=== PATIENT | female | born 1975 | race Hispanic/Latino ===

== ENCOUNTER → 2016-10-01 | Outpatient (CLI) | payer OTHER ==
[~2016-10-01] MED LIST: AMOX500C2 PO; BLOOD PRESSURE MED; CEPH-507 PO; CEPH500C PO; CIPR-225 PO; CODE-54 PO; HYDR-3812 PO; IBP800T PO; LINA5TAB PO; LISI-594 PO; MED FOR DIABETES PO; METF-760 PO; METFORMIN; OMEP20TA7 PO; PANT40TA2 PO; POLY119P5 PO; SUCR1TAB36 PO
--- OUTSIDE RECORDS SUMMARY | 2016-10-01 05:58 | XMS REPORT | Continuity of Care Document ---
Author Author [facility] Organization [facility] Address Unknown Phone Unavailable Allergies Active Description Code Type Severity Reaction Onset Reported/Identified Relationship to Patient Clinical Status Yes No Known Drug Allergies [id number] Drug Allergy Unknown N/ A 05/04/2015 Medications Problems Date Dx Coded Attending Type Code Diagnosis Diagnosed By 07/19/2012 Ot 276.8 HYPOPOTASSEMIA 07/19/2012 Ot 401.9 HYPERTENSION NOS 07/19/2012 Ot 473.9 CHRONIC SINUSITIS NOS 07/19/2012 Ot 784.0 HEADACHE 06/16/2014 Ot 634.91 SPON ABORT UNCOMPL-INC 06/16/2014 Ot 789.09 ABDOMINAL PAIN, OTHER SPECIFIED SITE 05/04/2015 CARIE PRESCOTT Ot 599.0 URIN TRACT INFECTION NOS 05/04/2015 CARIE PRESCOTT Ot 623.8 NONINFLAM DIS VAGINA NEC 05/04/2015 CARIE PRESCOTT Ot 632 MISSED 09/03/2015 Ot K59.00 CONSTIPATION, UNSPECIFIED 09/03/2015 Ot N39.0 URINARY TRACT INFECTION, SITE NOT SPECIF 09/03/2015 Ot R10.84 GENERALIZED ABDOMINAL PAIN 09/03/2015 Ot R11.2 NAUSEA WITH VOMITING, UNSPECIFIED 09/06/2015 Ot 640.93 09/06/2015 Ot 625.9 09/06/2015 Ot 640.93 09/06/2015 Ot 625.9 09/10/2015 MADLKRYSTYNAA L JEWELRY SALES COORDINATOR Ot R10.13 01/27/2016 MADLKRYSTYNAA L JEWELRY SALES COORDINATOR Ot R10.13 EPIGASTRIC PAIN 09/25/2016 Ot 640.93 HEM EARLY PREG-ANTEPART 09/25/2016 Ot 625.9 FEM GENITAL SYMPTOMS NOS 09/25/2016 MADL, JOSE L JEWELRY SALES COORDINATOR Ot R10.13 EPIGASTRIC PAIN 09/25/2016 Ot 640.93 HEM EARLY PREG-ANTEPART 09/25/2016 Ot 625.9 FEM GENITAL SYMPTOMS NOS 09/25/2016 KRISTI JOSESylvester SOLANO Ot R10.13 EPIGASTRIC PAIN Procedures Results Encounters ACCT No. Visit Date/Time Discharge Status Pt. Type Provider Facility Loc./Unit Complaint [id number] 05/04/2015 13:16:00 2014 16:52:00 DIS Emergency CARIE PRESCOTT [facility] ER 8 WKS PREG/BLEEDING [id number] 10/06/2016 09:45:00 PEN Preadmit KARUNA MERCADO DO [facility] ENDO REFLUX [id number] 10/01/2016 05:55:00 ACT Outpatient KARUNA MERCADO DO [facility] PREOP REFLUX [id number] 09/06/2015 07:56:00 ACT Outpatient JOSE BERRY [facility] RAD EPIGASTRIC PAIN [id number] 09/03/2015 18:59:00 Document Registration [id number] 03/21/2015 13:18:00 Document Registration [id number] 06/16/2014 15:09:00 Document Registration [id number] 06/08/2014 14:38:00 Document Registration [id number] 07/18/2012 21:55:00 Document Registration
== END ==
LOC: PREOP 05:55
PROVIDERS: ATTEND Surgery
DX: Z01.818 Encounter for other preprocedural examination (principal); K21.9 Gastro-esophageal reflux disease without esophagitis

== ENCOUNTER 2016-10-06 08:39 | Day surgery (SDC) | payer OTHER ==
[~2016-10-06] VITALS: Ht 162.6 cm; Wt 72.6 kg
[~2016-10-06 08:39] MED LIST changes: -CEPH-507 PO; -HYDR-3812 PO; -LINA5TAB PO; -METF-760 PO; -PANT40TA2 PO; -SUCR1TAB36 PO
--- OUTSIDE RECORDS SUMMARY | 2016-10-06 08:42 | XMS REPORT | Continuity of Care Document ---
Author Author [facility] Organization [facility] Address Unknown Phone Unavailable Allergies Active Description Code Type Severity Reaction Onset Reported/Identified Relationship to Patient Clinical Status Yes No Known Drug Allergies [id number] Drug Allergy Unknown N/ A 05/04/2015 Medications [...] 640.93 09/06/2015 Ot 625.9 09/10/2015 MADLKRYSTYNAA L HEALTH COUNSELOR Ot R10.13 01/27/2016 MADLKRYSTYNAA L HEALTH COUNSELOR Ot R10.13 EPIGASTRIC PAIN 09/25/2016 Ot 640.93 HEM EARLY PREG-ANTEPART 09/25/2016 Ot 625.9 FEM GENITAL SYMPTOMS NOS 09/25/2016 MADL, JOSE L HEALTH COUNSELOR Ot R10.13 EPIGASTRIC PAIN 09/25/2016 Ot 640.93 HEM EARLY PREG-ANTEPART 09/25/2016 Ot 625.9 FEM GENITAL SYMPTOMS NOS 09/25/2016 JOSE BERRY HEALTH COUNSELOR Ot R10.13 EPIGASTRIC PAIN 10/02/2016 KARUNA MERCADO DO Ot K21.9 GASTRO-ESOPHAGEAL REFLUX DISEASE WITHOUT 10/02/2016 KARUNA MERCADO DO Ot Z01.818 ENCOUNTER FOR OTHER PREPROCEDURAL EXAMIN Procedures Results Encounters ACCT No. Visit Date/Time Discharge Status Pt. Type Provider Facility Loc./Unit Complaint [id number] 05/04/2015 13:16:00 2014 16:52:00 DIS Emergency CARIE PRESCOTT [facility] ER 8 WKS PREG/BLEEDING [id number] 10/06/2016 09:45:00 PEN Preadmit KARUNA MERCADO DO [facility] ENDO REFLUX [id number] 10/01/2016 05:55:00 ACT Outpatient KARUNA MERCADO DO [facility] PREOP REFLUX [id number] 09/06/2015 07:56:00 ACT Outpatient JOSE BERRY [facility] RAD EPIGASTRIC PAIN [id number] 09/03/2015 18:59:00 Document Registration [id number] 03/21/2015 13:18:00 Document Registration [id number] 06/16/2014 15:09:00 Document Registration [id number] 06/08/2014 14:38:00 Document Registration [id number] 07/18/2012 21:55:00 Document Registration
[2016-10-06] MEDS ORDERED: NS IV 1000 ML 1,000 ML IV STA (08:50)
[2016-10-06] MEDS ORDERED: HURRICAINE EXT TUBE (BENZOCAINE) XX PRN (09:00)
[2016-10-06] MEDS ORDERED: MIDAZOLAM 2 MG/2 ML (VERSED) VIAL ONE (09:01)
[2016-10-06] MEDS ORDERED: proPOfol 200 MG/20 ML (DIPRIVAN) VIAL IV ONE (09:01)
--- NOTE | 2016-10-06 09:02 | Progress Note-Pre Operative ---
Pre-Operative Progress Note H&P Reviewed The H&P was reviewed, patient examined and no changes noted. Date H&P Reviewed: Oct 06, 2016 Time H&P Reviewed: 09:02 Pre-Operative Diagnosis: GERD KARUNA MERCADO DO Oct 06, 2016 9:02 am
[2016-10-06 09:17] VITALS: BP 173/90
[2016-10-06] MEDS ORDERED: PANT40TA2 PO (09:23)
[2016-10-06] MEDS ORDERED: SUCR1TAB36 PO (09:23)
--- NOTE | 2016-10-06 09:24 | Discharge Inst-Simple/Standard ---
Discharge Inst-Standard Discharge Medications New, Converted or Re-Newed RX: RX on Chart Patient Instructions/Follow Up Plan of Care/Instructions/FU: Follow up with Dr. Shaw in 3 weeks. Take medication as directed Activity as Tolerated: Yes Discharge Diet: No Restrictions FRANCHESKA VILLAFANA APRN Oct 06, 2016 09:24
--- NOTE | 2016-10-06 09:25 | Progress Note-Post Operative ---
Post-Operative Progess Note Pre-Operative Diagnosis GERD Post-Operative Diagnosis antral ulcers, small hiatal hernia Post-Op Procedure Note Date of Procedure: Oct 06, 2016 Name of Procedure: EGD with biopsy Procedure Note/Findings see note Anesthesia Type per nurses' aide Estimated blood loss (mL): none Specimen(s) collected antrum KARUNA MERCADO DO Oct 06, 2016 9:25 am
[2016-10-06 09:50] VITALS: BP 143/93
[2016-10-06 10:20] VITALS: BP 152/90
[2016-10-06 10:45] VITALS: BP 152/90
--- NOTE | 2016-10-07 13:02 | OPERATIVE REPORT ---
PROCEDURE PHYSICIAN: KARUNA MERCADO DATE OF PROCEDURE: 10/06/2016 PREOPERATIVE DIAGNOSIS: GERD. POSTOPERATIVE DIAGNOSES: Small antral erosions, small hiatal hernia. PROCEDURE: EGD with biopsies. SURGEON: Colin. ANESTHESIA: Per POLISHING PAD MOUNTER. ESTIMATED BLOOD LOSS: None. COMPLICATIONS: None. INDICATIONS: The patient is a 40-year-old female who is having reflux symptoms. She understands the risks and benefits of the procedure and wishes to proceed with procedure. Consent was signed on the chart. PROCEDURE: The patient was taken to the endoscopy suite, placed in left lateral recumbent position. Timeout was performed. The scope was inserted in the mouth, down the esophagus and into the stomach noting some antral erosions. The scope was continued to be inserted into the duodenum without difficulty. There were no polyps, masses or ulcerations in the duodenum. The scope was then slowly retracted back into the stomach where it was further insufflated noting the antral erosions. Biopsy of the antrum was obtained. The scope was retroflexed noting a small hiatal hernia. No other pathology noted. The scope was returned to its normal position slowly withdrawn back into the esophagus. She has no polyps, masses, ulcerations or erythema in the distal esophagus. The scope was then slowly retracted back noting no other pathology. The scope was retracted until completely removed. The patient tolerated the procedure well without any complications. She was taken to recovery room in stable condition. RECOMMENDATIONS: The patient will be switched from Prilosec to Protonix 40 mg daily. She will also be placed on Carafate 1 gram 4 times a day. She will have follow-up in the office in approximately 3 weeks. Further recommendations pending pathology results and see how her symptoms are doing at that time. Job ID: [id number] Dictated Date: 10/06/2016 09:28:04 Installation Tech Date: 10/07/2016 12:57:16 / constantino
[2016-11-26] MEDS ORDERED: HYDR-3812 PO (12:05)
[2016-11-26] MEDS ORDERED: CEPH-507 PO (14:01)
== END 2016-10-06 10:45 | disposition home or self-care (01) ==
LOC: ENDO 08:39
PROVIDERS: ATTEND Surgery
DX: K21.9 Gastro-esophageal reflux disease without esophagitis (principal); K44.9 Diaphragmatic hernia without obstruction or gangrene; K25.9 Gastric ulcer, unspecified as acute or chronic, without hemorrhage or perforation
CPT/HCPCS: 82962; 88305

== ENCOUNTER → 2016-10-30 | Outpatient (CLI) | payer OTHER ==
[~2016-10-30] MED LIST changes: +CEPH-507 PO; +HYDR-3812 PO; +LINA5TAB PO; +METF-760 PO; +PANT40TA2 PO; +SUCR1TAB36 PO
--- OUTSIDE RECORDS SUMMARY | 2016-10-30 06:48 | XMS REPORT | Continuity of Care Document ---
Author Author [facility] Organization [facility] Address Unknown Phone Unavailable Care Team Providers Care Reproductive Surgeon Name Role Phone GIANNI SHORE DO PCP Insurance Providers Payer Name Policy Number Subscriber Name Relationship Self Pay Pending [facility] Apprv [id number] Remea Villanueva 18 Self / Same As Patient Advance Directives Directive Response Recorded Date/Time Advance Directives No 10/06/16 9:09am Health Care Power of Ceramic Capacitor Processor No 10/06/16 9:09am Organ Donor No 10/06/16 9:09am Resuscitation Status Full Code 10/06/16 9:09am Problems Active Problems Medical Problem Onset Date Status Constipation Unknown Acute Generalized abdominal pain Unknown Acute Incomplete Unknown Acute Missed Unknown Acute Nausea and vomiting Unknown Acute Urinary tract infection Unknown Acute Urinary tract infection Unknown Acute Medications Current Home Medications Medication Dose Units Route Directions Days/Qty Instructions Start Date [Metformin] 06/16/14 [Blood Pressure Med] 06/16/14 Acetaminophen/Codeine 1 Tab 1 Tab Oral Every 4HRS for Pain 10 06/16/14 [Metformin] 05/04/15 Cephalexin 500 Mg 500 Mg Oral Three Times A Day 21 05/04/15 Polyethylene Glycol 3350 119 Gm 17 Gm Oral Twice A Day 1 Dissolve one capful in 8 ounces of water or juice 09/03/15 Ciprofloxacin Hcl 500 Mg 500 Mg Oral Twice A Day 14 09/03/15 Sucralfate 1 Gm 1 Gm Oral Four Times Daily 120 10/06/16 Pantoprazole Sodium 40 Mg 40 Mg Oral Daily 60 10/06/16 Past Home Medications Medication Directions Ordered Status [Med For Diabetes] , 0 Oral Daily 07/18/12 Discontinued Amoxicillin 500 Mg Capsule, 2 Each Oral Three Times A Day 07/19/12 Discontinued Ibuprofen 800 Mg Tab, 800 Mg Oral Give Every 8 Hrs On Schedule as needed 18/08 Discontinued Lisinopril 5 Mg Tablet, 5 Mg Oral Daily 07/19/12 Discontinued Omeprazole 20 Mg Tablet.dr, 20 Mg Oral Daily 09/03/15 Discontinued Social History Social History Problem Response Recorded Date/Time Alcohol Use Denies Use 05/04/2015 1:40pm Recreational Drug Use No 05/04/2015 1:40pm Recent Foreign Travel No 10/06/2016 9:15am Recent Infectious Disease Exposure No 10/06/2016 9:15am Sexually Transmitted Disease No 10/06/2016 9:09am HIV/AIDS No 10/06/2016 9:09am Smoking Status Never a Smoker 10/06/2016 9:09am Recent Hopitalizations No 10/06/2016 9:09am Sexually Transmitted Disease No 10/06/2016 9:09am Query Response Start Date Stop Date Smoking Status Never a Smoker Hospital Discharge Instructions Patient Instructions Physician Instructions New, Converted or Re-Newed RX: RX on Chart Plan of Care/Instructions/FU: Follow up with Dr. Mercado in 3 weeks. Take medication as directed Activity as Tolerated: Yes Discharge Diet: No Restrictions Care Plan Patient Instructions:: Follow up with Dr. Mercado in 3 weeks.Take medication as directed Plan of Care Discharge Date 10/06/16 10:45am Instructions/Education Provided EGD-ESOPHAGOGASTRODUODENOSCOPY Prescriptions See Medication Section Functional Status No functional status results. Allergies, Adverse Reactions, Alerts No known allergies. Immunizations No immunization records. Vital Signs Acute Vital Signs Vital Response Date/Time Temperature (Fahrenheit) 97.6 degrees F (97.6 - 99.5) 10/06/2016 10:45am Temperature (Calculated Celsius) 36.61157 degrees C (36.4 - 37.5) 10/06/2016 10:45am Temperature Source Tympanic 10/06/2016 10:45am Pulse Rate (adult) 81 bpm (60 - 90) 10/06/2016 10:45am Respiratory Rate 18 bpm (12 - 24) 10/06/2016 10:45am O2 Sat by Pulse Oximetry 98 % (88 - 100) 10/06/2016 10:45am Blood Pressure 152/90 mm Hg 10/06/2016 10:45am Blood Pressure Mean 117 mm Hg 10/06/2016 9:17am Pain Numeric Pain Scale 0-No Pain 10/06/2016 10:45am Pain Intensity 0 10/06/2016 10:20am Height (Feet) 5 feet 10/06/2016 9:17am Height (Inches) 4.00 inches 10/06/2016 9:17am Height (Calculated Centimeters) 162.458563 cm 10/06/2016 9:17am Weight (Pounds) 160 pounds 10/06/2016 9:17am Weight (Ounces) 0.0 oz 10/06/2016 9:17am Weight (Calculated Grams) 52037.78 gm 10/06/2016 9:17am Weight (Calculated Kilograms) 72.611105 kilograms 10/06/2016 9:17am Calculated BMI 27.5 10/06/2016 9:17am Results Laboratory Results Test Name Result Units Flags Reference Collection Date/Time Result Date/ Time Comments Glucometer 131 MG/DL H 70-110 10/06/2016 8:58am 10/06/2016 9:13am Procedures Procedure Status Date Provider(s) Esophagogastroduodenoscopy (EGD) with dilation Completed 10/06/16 KARUNA MERCADO DO Anesthesia for 30 minutes Active 10/06/16 KARUNA MERCADO DO Encounters Encounter Location Arrival/Admit Date Discharge/Depart Date Attending Provider Departed [facility] 10/06/16 8:39am 10:45am KARUNA MERCADO DO Registered Clinic [facility] 10/01/16 5:55am KARUNA MERCADO DO
--- NOTE | 2016-10-30 08:01 | Diagnostic Imaging Report ---
PROCEDURE: US Gallbladder. TECHNIQUE: Multiple real-time grayscale images were obtained over the right upper quadrant in various projections. INDICATION: Abdominal pain. Liver parenchyma is homogeneous with normal echotexture. The gallbladder is clear with no stones or wall thickening. The common duct is nondilated. Pancreas is obscured by bowel gas. Right kidney is normal. There is no ascites. IMPRESSION: Negative gallbladder sonogram. Dictated by: Dictated on workstation # [id number]
== END ==
LOC: RAD 06:44
PROVIDERS: ATTEND Nurse Practitioner
DX: R10.13 Epigastric pain (principal)
CPT/HCPCS: 76705

== ENCOUNTER → 2016-11-13 | Outpatient (CLI) | payer OTHER ==
[~2016-11-13] MED LIST changes: +CATHETER FLUSH 10 ML SYR IV PRN
--- NOTE | 2016-11-13 15:28 | Diagnostic Imaging Report ---
INDICATION: Epigastric pain. After intravenous administration of 5.0 mCi technetium 99m Choletec, scintigraphic images of the upper abdomen are obtained. Initial images reveal normal distribution of activity throughout the liver. There is prompt appearance of activity in the biliary tree and gallbladder. Activity passes freely into the small bowel. Patient then ingested Ensure Plus without significant contraction of the gallbladder documented. IMPRESSION: No scintigraphic evidence of acute cholecystitis or biliary obstruction. There is no significant response to ingesting Ensure. This may be related to gallbladder dyskinesia. Chronic cholecystitis could have this appearance. Dictated by: Dictated on workstation # [id number]
== END ==
LOC: CARD 11:44
PROVIDERS: ATTEND Nurse Practitioner
DX: R10.13 Epigastric pain (principal)
CPT/HCPCS: 78227

== ENCOUNTER 2016-11-19 11:56 | Outpatient (CLI) | payer OTHER ==
[~2016-11-19] VITALS: Ht 157.5 cm; Wt 73.1 kg
[~2016-11-19 11:56] MED LIST changes: -CATHETER FLUSH 10 ML SYR IV PRN; -CEPH-507 PO; -HYDR-3812 PO; -LINA5TAB PO; -METF-760 PO
[2016-11-19 12:06] VITALS: BP 161/100
[2016-11-19 13:03] LABS: BASOPHILS % (AUTO) 0 % (0-10); EOSINOPHILS % (AUTO) 0 % (0-10); LYMPHOCYTES # (AUTO) 2.2 X 10^3 (1.0-4.0); LYMPHOCYTES % (AUTO) 18 % (12-44); MEAN CORPUSCULAR HEMOGLOBIN 31 PG (25-34); MEAN CORPUSCULAR HGB CONC 36 G/DL (32-36); MEAN CORPUSCULAR VOLUME 87 FL (80-99); MEAN PLATELET VOLUME 11.7 FL (7.4-10.4); MONOCYTES # (AUTO) 0.6 X 10^3 (0.0-1.0); MONOCYTES % (AUTO) 5 % (0-12); NEUTROPHILS # (AUTO) 9.3 X 10^3 (1.8-7.8); NEUTROPHILS % (AUTO) 76 % (42-75); PLATELET COUNT 234 10^3/uL (130-400); RED BLOOD COUNT 4.26 10^6/uL (4.35-5.85); RED CELL DISTRIBUTION WIDTH 12.2 % (10.0-14.5); WHITE BLOOD COUNT 12.2 10^3/uL (4.3-11.0)
[2016-11-19] MEDS ORDERED: METF-760 PO (14:33)
[2016-11-19] MEDS ORDERED: LINA5TAB PO (14:33)
[2016-11-26] MEDS ORDERED: HYDR-3812 PO (12:05)
[2016-11-26] MEDS ORDERED: CEPH-507 PO (14:01)
== END 2016-11-19 12:20 | disposition home or self-care (01) ==
LOC: PREOP 11:56
PROVIDERS: ATTEND Surgery
DX: Z01.812 Encounter for preprocedural laboratory examination (principal); Z11.2 Encounter for screening for other bacterial diseases; K82.8 Other specified diseases of gallbladder
CPT/HCPCS: 36415; 85025; 87081

== ENCOUNTER 2016-11-26 10:21 | Day surgery (SDC) | payer OTHER ==
[~2016-11-26] VITALS: Ht 157.5 cm; Wt 73.1 kg
[~2016-11-26 10:21] MED LIST changes: +LINA5TAB PO; +METF-760 PO
[2016-11-26] MEDS ORDERED: ceFAZolin 1,000 MG (ANCEF) VIAL ONE (10:37)
[2016-11-26] MEDS ORDERED: NS (IVPB) 50 ML ONE (10:38)
[2016-11-26 10:45] VITALS: BP 161/87
[2016-11-26] MEDS ORDERED: proPOfol 200 MG/20 ML (DIPRIVAN) VIAL IV ONE (10:54)
[2016-11-26] MEDS ORDERED: LIDOCAINE 1% INJ 20 ML (XYLOCAINE) VIAL ONE (10:54)
[2016-11-26] MEDS ORDERED: BUPIVACAINE 0.5% 30 ML (SENSORCAINE) VIAL ONE (10:54)
[2016-11-26] MEDS ORDERED: fentaNYL INJECTION 250 MCG/5 ML AMP ONE (10:54)
[2016-11-26] MEDS ORDERED: MIDAZOLAM 2 MG/2 ML (VERSED) VIAL ONE (10:54)
[2016-11-26] MEDS ORDERED: ROCURONIUM 50 MG/5 ML (ZEMURON) VIAL IV ONE (10:54)
[2016-11-26] MEDS: LACTATED RINGERS 1,000 ML IV SCH ×2 (10:55→12:09)
[2016-11-26] MEDS ORDERED: ceFAZolin 1 GM/NS 50 ML IVPB IV ONE ×2 (11:00)
[2016-11-26] MEDS ORDERED: LACTATED RINGERS 1,000 ML IV ONE ×2 (11:01→12:15)
[2016-11-26] MEDS ORDERED: SEVOFLURANE (ULTANE) 15 ML INHAL SOLN ONE (12:04)
--- NOTE | 2016-11-26 12:04 | Progress Note-Post Operative ---
Post-Operative Progess Note Surgeon (s)/Motor Winder (s) Surgeon KARUNA MERCADO DO Motor Winder: Dr. Hickman Pre-Operative Diagnosis biliary dyskinesia Post-Operative Diagnosis Same Post-Op Procedure Note Date of Procedure: Nov 26, 2016 Name of Procedure Performed: Laparoscopic cholecystectomy Description of the Procedure: see note Findings of the Procedure see note Anesthesia Type general Estimated blood loss (mL): minimal Specimen(s) collected/removed gallbladder KARUNA MERCADO DO Nov 26, 2016 12:03 pm
[2016-11-26] MEDS ORDERED: HYDR-3812 PO (12:05)
--- NOTE | 2016-11-26 12:09 | Discharge Inst-Simple/Standard ---
Discharge Inst-Standard Discharge Medications New, Converted or Re-Newed RX: RX on Chart Patient Instructions/Follow Up Plan of Care/Instructions/FU: 2 weeks Colin [address] Mancini Activity as Tolerated: No Discharge Diet: Regular Diet Other Inst to Patient Follow up Appt: Make appointment for [address] Shaw. Make appointment for [address] Mancini Instructions: No lifting greater than 10 pounds. No strenuous activity. May shower in 24 hours, no tub bath or soaking. Use incentive spirometer at home as directed. No Smoking Skin/Wound Care: May remove bandages in 24 hours. You need to leave the white strips over incision on they will fall off on their own. Symptoms to Report: Appetite Changes, Extremity Discoloration, Numbness/Tingling, Swelling Increased , Bleeding Excessive, Eyesight Changes, Pain Increased, Urine Color Change, Constipation(Persistent), Fever over 101 degree F, Pain/Pressure in chest, Urinating Difficulty, Cough Up/Vomit Blood, Heart Beat Irreg/Pounding, Pain/ Pressure in jaw, Vaginal Bleeding Increase, Cramps in feet or legs, Lightheadedness, Pain/Pressure in shoulder, Diarrhea(Persistent), Memory Changes Suddenly, Questions/Concerns, Weight gain consecutive days, Dizziness/ Fainting, Nausea/Vomiting, Shortness of Breath, Weight gain over 2 pounds. If eyes or skin turn yellow notify physician. If questions or concerns contact your physician Or seek help at emergency department. KARUNA SHAW DO Nov 26, 2016 12:09 pm
[2016-11-26] MEDS ORDERED: GLYCOPYRROLATE 0.2 MG/ML (ROBINUL) 2 ML VIAL ONE (12:15)
[2016-11-26] MEDS ORDERED: HYDROcodone/APAP 5 MG/325 MG (LORTAB) TAB PO PRN (12:15)
[2016-11-26] MEDS ORDERED: NEOSTIGMINE (BLOXIVERZ ) 1 MG/1ML 10 ML VIAL ONE (12:15)
[2016-11-26] MEDS ORDERED: morphine INJ 10 MG/ML 1ML (SYR OR VIAL) ONE (12:32)
[2016-11-26] MEDS: morphine INJ 10 MG/ML 1ML (SYR OR VIAL) IV PRN ×2 (12:39→12:44)
[2016-11-26] MEDS: LABETALOL HCL 20 MG/4 ML VIAL IV PRN ×3 (12:45→13:02)
[2016-11-26 13:20] VITALS: BP 175/52
[2016-11-26 13:31] LABS: BILIRUBIN,URINE NEGATIVE (NEGATIVE); KETONES,URINE 1+ (NEGATIVE); LEUKOCYTE ESTERASE ,URINE 3+ (NEGATIVE); NITRITE,URINE NEGATIVE (NEGATIVE); PH,URINE 6 (5-9); PROTEIN,URINE 2+ (NEGATIVE); UROBILINOGEN,URINE NORMAL (NORMAL)
[2016-11-26 13:41] LABS: SQUAMOUS EPITHELIAL CELL,UR 0-2 /HPF; WBC,URINE TNTC /HPF
[2016-11-26 13:50] VITALS: BP 177/93
[2016-11-26] MEDS ORDERED: CEPH-507 PO (14:01)
[2016-11-26 14:20] VITALS: BP 165/96
[2016-11-26 15:50] VITALS: BP 165/96
--- NOTE | 2016-11-27 11:27 | OPERATIVE REPORT ---
PROCEDURE PHYSICIAN: KARUNA MERCADO DATE OF PROCEDURE: 11/26/2016 PREOPERATIVE DIAGNOSIS: Biliary dyskinesia. POSTOPERATIVE DIAGNOSIS: Biliary dyskinesia. PROCEDURE: Laparoscopic cholecystectomy. SURGEON: Colin. MEDICAL SURGICAL TECH: Dr. Hickman, who assisted in retraction, dissection, and closure. ANESTHESIA: General. ESTIMATED BLOOD LOSS: Minimal. COMPLICATIONS: Positive test. INDICATIONS: The patient is a 41-year-old female who had been having abdominal pain and had studies consistent with biliary dyskinesia. She understands the risks and benefits of the procedure and wished to proceed with procedure. Consent was signed on the chart. PROCEDURE: The patient was taken back to the operating suite by circulating nurse who was given report of negative test. The patient underwent general anesthetic. Once under general anesthetic, it was reported that the patient had a positive test. Due to the patient already being under general anesthetic, surgical intervention would not change any risk factors. Therefore the procedure that she was consented for, we continued to proceed. Surgical timeout was performed. Local anesthetic of 0.5% Marcaine 1% lidocaine at a 50:50 ratio was used to anesthetize just superior to the umbilicus. A 15 blade scalpel was used to make an incision and cautery was used to dissect down to the fascia. The fascia was then scored, grasped with Giulia and the abdomen was then entered. An 0 Vicryl was placed in a [id number]-gs-shyvp fashion and a balloon port was then inserted and pneumoperitoneum was achieved. Under direct visualization of the laparoscope, a 5 mm trocar was placed in the subxiphoid region and two 5-mm trocars were then placed in the right upper quadrant. The gallbladder had some adhesions to the gallbladder which were then taken down with a [place]. The cystic duct and cystic artery were then dissected out. Clips were placed on the proximal portion of the cystic duct and on the distal portion of the cystic duct and this was then transected. Clips were placed on the proximal and distal portion of the cystic artery which was then transected. Hook cautery was used to dissect the gallbladder from the gallbladder fossa achieving hemostasis. The gallbladder was placed in an Endobag and removed through the 12 mm trocar sites. The abdomen was then irrigated with copious amounts of irrigation and suction. The abdomen was then desufflated, the trocars were removed. The 12 mm fascial defect already had a sagwog-md-drptd 0 Vicryl, placed. This was then closed. The abdomen was then washed and dried. The skin was then closed using 4-0 Vicryl in a subcuticular fashion. Mastisol and Steri-Strips were than applied over the incisions and sterile bandages were applied. The patient tolerated procedure well without any complications. She was taken to the recovery room in stable condition. After the patient had returned from recovery a discussion was made with the patient and her family using service center supervisor line. She understands the discussion we had in regards to the positive test and proceeding with surgical intervention. All of her questions were answered. She will follow-up with myself in 2 weeks. She is follow-up with Dr. Mancini in one week. Job ID: [id number] Dictated Date: 11/26/2016 20:56:30 Extractor Operator Date: 11/27/2016 11:13:04 / constantino ZAPATA
--- OUTSIDE RECORDS SUMMARY | 2016-12-27 21:11 | XMS REPORT | Continuity of Care Document ---
Author Author [facility] Organization [facility] Address Unknown Phone Unavailable Allergies Active Description Code Type Severity Reaction Onset Reported/Identified Relationship to Patient Clinical Status Yes No Known Drug Allergies [id number] Drug Allergy Unknown N/ A 10/06/2016 Medications Problems Date Dx Coded Attending Type [...] 640.93 09/06/2015 Ot 625.9 09/10/2015 MADLKRYSTYNAA L SKIN PASS OPERATOR Ot R10.13 01/27/2016 MADLZEEJOSE L SKIN PASS OPERATOR Ot R10.13 EPIGASTRIC PAIN 09/25/2016 Ot 640.93 HEM EARLY PREG-ANTEPART 09/25/2016 Ot 625.9 FEM GENITAL SYMPTOMS NOS 09/25/2016 MADL, JOSE L SKIN PASS OPERATOR Ot R10.13 EPIGASTRIC PAIN 09/25/2016 Ot 640.93 HEM EARLY PREG-ANTEPART 09/25/2016 Ot 625.9 FEM GENITAL SYMPTOMS NOS 09/25/2016 JOSE BERRY SKIN PASS OPERATOR Ot R10.13 EPIGASTRIC PAIN 10/02/2016 KARUNA MERCADO DO Ot K21.9 GASTRO-ESOPHAGEAL REFLUX DISEASE WITHOUT 10/02/2016 KARUNA MERCADO DO Ot Z01.818 ENCOUNTER FOR OTHER PREPROCEDURAL EXAMIN 10/06/2016 KARUNA MERCADO DO Ot K21.9 GASTRO-ESOPHAGEAL REFLUX DISEASE WITHOUT 10/06/2016 KARUNA MERCADO DO Ot K25.9 GASTRIC ULCER, UNSP ACUTE OR CHRONIC, 10/06/2016 [place] KARUNA GARAY Ot K44.9 DIAPHRAGMATIC HERNIA WITHOUT OBSTRUCTION 10/07/2016 KARUNA MERCADO DO Ot K21.9 GASTRO-ESOPHAGEAL REFLUX DISEASE WITHOUT 10/07/2016 MERCADO KARUNA GARAY Ot K25.9 GASTRIC ULCER, UNSP ACUTE OR CHRONIC, 10/07/2016 MERCADO KARUNA GARAY Ot K44.9 DIAPHRAGMATIC HERNIA WITHOUT OBSTRUCTION 11/03/2016 NWWU, ISIDORE O CUFF TURNER Ot R10.13 EPIGASTRIC PAIN 11/04/2016 NWWU, ISIDORE O CUFF TURNER Ot R10.13 EPIGASTRIC PAIN 11/13/2016 Ot 640.93 HEM EARLY PREG-ANTEPART 11/13/2016 Ot 625.9 FEM GENITAL SYMPTOMS NOS 11/13/2016 JOSE BERRY SKIN PASS OPERATOR Ot R10.13 EPIGASTRIC PAIN 11/13/2016 KARUNA MERCADO DO Ot K21.9 GASTRO-ESOPHAGEAL REFLUX DISEASE WITHOUT 11/13/2016 KARUNA MERCADO DO Ot Z01.818 ENCOUNTER FOR OTHER PREPROCEDURAL EXAMIN 11/13/2016 NWAGWU, ISIDORE O CUFF TURNER Ot R10.13 EPIGASTRIC PAIN 11/13/2016 NWAGWU, ISIDORE O CUFF TURNER Ot R10.13 EPIGASTRIC PAIN 11/16/2016 NWAGWU, ISIDORE O CUFF TURNER Ot R10.13 EPIGASTRIC PAIN 11/19/2016 KARUNA MERCADO DO Ot K82.8 OTHER SPECIFIED DISEASES OF GALLBLADDER 11/19/2016 KARUNA MERCADO DO Ot Z01.812 ENCOUNTER FOR PREPROCEDURAL LABORATORY E 11/19/2016 KARUNA MERCDAO DO Ot Z11.2 ENCOUNTER FOR SCREENING FOR OTHER BACTER 11/20/[facility] Ot K82.8 OTHER SPECIFIED DISEASES OF GALLBLADDER 11/20/2016 [facility] Ot Z01.812 ENCOUNTER FOR PREPROCEDURAL LABORATORY E 11/20/2016 [facility] Ot Z11.2 ENCOUNTER FOR SCREENING FOR OTHER BACTER 11/25/2016 [facility] Ot K82.8 OTHER SPECIFIED DISEASES OF GALLBLADDER 11/25/2016 [facility] Ot Z01.812 ENCOUNTER FOR PREPROCEDURAL LABORATORY E 11/25/2016 [facility], KARUNA D Ot Z11.2 ENCOUNTER FOR SCREENING FOR OTHER BACTER 11/26/2016 FRANCHESKA VILLAFANA APRN Ot R10.13 EPIGASTRIC PAIN 11/26/2016 [facility] Ot K81.1 CHRONIC CHOLECYSTITIS 11/26/2016 [facility] Ot K82.8 OTHER SPECIFIED DISEASES OF GALLBLADDER 11/26/2016 [facility] Ot Z33.1 STATE, INCIDENTAL 12/14/2016 DAVE GARZA APRN Ot Z32.01 ENCOUNTER FOR TEST, RESULT POS 12/17/2016 DAVE GARZA APRN Ot Z32.01 ENCOUNTER FOR TEST, RESULT POS 12/22/2016 DAVE GARZA CUFF TURNER Ot Z32.01 ENCOUNTER FOR TEST, RESULT POS Procedures Results Test Result Range Capillary blood glucose measurement by glucometer (mass/volume) - 10/06/16 08: 58 Capillary blood glucose measurement by glucometer (mass/volume) 131 mg/dL 70-110 Complete blood count (CBC) with automated white blood cell (WBC) differential - 11/19/16 12:17 Blood leukocytes automated count (number/volume) 12.2 10*3/ uL 4.3-11.0 Blood erythrocytes automated count (number/volume) 4.26 10*6 /uL 4.35-5.85 Venous blood hemoglobin measurement (mass/volume) 13.3 g/dL 11.5-16.0 Blood hematocrit (volume fraction) 37 % 35-52 Automated erythrocyte mean corpuscular volume 87 [foz_us] 80-99 Automated erythrocyte mean corpuscular hemoglobin (mass per erythrocyte) 31 pg 25-34 Automated erythrocyte mean corpuscular hemoglobin concentration measurement ( mass/volume) 36 g/dL 32-36 Automated erythrocyte distribution width ratio 12.2 % 10.0-14.5 Automated blood platelet count (count/volume) 234 10*3/uL 130-400 Automated blood platelet mean volume measurement 11.7 [foz_ us] 7.4-10.4 Automated blood neutrophils/100 leukocytes 76 % 42-75 Automated blood lymphocytes/100 leukocytes 18 % 12-44 Blood monocytes/100 leukocytes 5 % 0-12 Automated blood eosinophils/100 leukocytes 0 % 0-10 Automated blood basophils/100 leukocytes 0 % 0-10 Blood neutrophils automated count (number/volume) 9.3 10*3 1.8-7.8 Blood lymphocytes automated count (number/volume) 2.2 10*3 1.0-4.0 Blood monocytes automated count (number/volume) 0.6 10*3 0.0-1.0 Automated eosinophil count 0.0 10*3/uL 0.0-0.3 Automated blood basophil count (count/volume) 0.0 10*3/uL 0.0-0.1 Methicillin resistant Staphylococcus aureus (MRSA) screening culture - 12:17 Methicillin resistant Staphylococcus aureus (MRSA) screening culture NEG NRG Capillary blood glucose measurement by glucometer (mass/volume) - 11/26/16 10: 49 Capillary blood glucose measurement by glucometer (mass/volume) 105 mg/dL 70-110 Urine beta human chorionic gonadotropin (hCG) measurement - 11/26/16 11:05 Urine beta human chorionic gonadotropin (hCG) measurement POSITIVE NEGATIVE Complete urinalysis with reflex to culture - 11/26/16 11:05 Urine color determination YELLOW NRG Urine clarity determination VERY CLOUDY NRG Urine pH measurement by test strip 6 5- 9 Specific gravity of urine by test strip 1.015 1.016-1.022 Urine protein assay by test strip, semi-quantitative 2+ NEGATIVE Urine glucose detection by automated test strip NEGATIVE NEGATIVE Erythrocytes detection in urine sediment by light microscopy 3+ NEGATIVE Urine ketones detection by automated test strip 1+ NEGATIVE Urine nitrite detection by test strip NEGATIVE NEGATIVE Urine total bilirubin detection by test strip NEGATIVE NEGATIVE Urine urobilinogen measurement by automated test strip (mass/volume) NORMAL NORMAL Urine leukocyte esterase detection by dipstick 3+ NEGATIVE Automated urine sediment erythrocyte count by microscopy (number/high power field) [HPF] NRG Automated urine sediment leukocyte count by microscopy (number/high power field ) TNTC NRG Bacteria detection in urine sediment by light microscopy FEW NRG Squamous epithelial cells detection in urine sediment by light microscopy 0-2 NRG Crystals detection in urine sediment by light microscopy NONE NRG Casts detection in urine sediment by light microscopy NONE NRG Mucus detection in urine sediment by light microscopy NEGATIVE NRG Complete urinalysis with reflex to culture YES NRG Bacterial urine culture - 11/26/16 11:05 Bacterial urine culture [id number] NRG COLONY COUNT 10,000/ML - 100,000/ML NRG FTX;REPORTABLE SENSITIVITY REPORTED AT 1702, 4-7-72 NRG FREE TEXT ENTRY 2 PLUS, NRG FREE TEXT ENTRY 3 LACTOBACILLUS 10-100,000/ML NRG Bacterial susceptibility panel - 11/26/16 11:05 Gentamicin susceptibility test by minimum inhibitory concentration <= NRG Trimethoprim/sulfamethoxazole susceptibility test by minimum inhibitoryconcentration >= NRG Ampicillin susceptibility test by minimum inhibitory concentration >= NRG Tobramycin susceptibility test by minimum inhibitory concentration <= NRG Cefazolin susceptibility test by minimum inhibitory concentration <= NRG Ceftriaxone susceptibility test by minimum inhibitory concentration <= NRG Ampicillin/sulbactam susceptibility test by minimum inhibitory concentration >= NRG Piperacillin/tazobactam susceptibility test by minimum inhibitory concentration <= NRG Ciprofloxacin susceptibility test by minimum inhibitory concentration <= NRG Meropenem susceptibility test by minimum inhibitory concentration <= NRG Nitrofurantoin susceptibility test by minimum inhibitory concentration <= NRG Aztreonam susceptibility test by minimum inhibitory concentration <= NRG Extended spectrum beta lactamase (ESBL) producing bacteria susceptibility test by minimum inhibitory concentration - NRG Serum or plasma choriogonadotropin measurement (units/volume) - 11/26/16 13:56 Serum or plasma choriogonadotropin measurement (units/volume) 232 m[iU]/mL <5 Encounters ACCT No. Visit Date/Time Discharge Status Pt. Type Provider Facility Loc./Unit Complaint [id number] 11/26/2016 10:21:00 2016 15:50:00 DIS Outpatient KARUNA MERCADO DO [facility] SDC BILIARY DYSKINESIA [id number] 11/19/2016 11:56:00 2016 12:20:00 DIS Outpatient KARUNA MERCADO DO [facility] PREOP LAP JV [id number] 10/06/2016 08:39:00 2016 10:45:00 DIS Outpatient KARUNA MERCADO DO [facility] ENDO REFLUX [id number] 05/04/2015 13:16:00 2014 16:52:00 DIS Emergency CARIE PRESCOTT [facility] ER 8 WKS PREG/BLEEDING [id number] 12/11/2016 13:45:00 ACT Outpatient DAVE GARZA CUFF TURNER [facility] RAD Z32.01 [id number] 11/13/2016 11:44:00 ACT Outpatient NWAGWUHAMIDADORE O CUFF TURNER [facility] CARD EPIGASTRIC PAIN [id number] 10/30/2016 06:44:00 ACT Outpatient NWHAMIDA ENGDORE O CUFF TURNER [facility] RAD EPIGASTRIC ABD PAIN [id number] 10/01/2016 05:55:00 ACT Outpatient KARUNA MERCADO DO [facility] PREOP REFLUX [id number] 09/06/2015 07:56:00 ACT Outpatient JOSE BERRY SKIN PASS OPERATOR [facility] RAD EPIGASTRIC PAIN [id number] 09/03/2015 18:59:00 Document Registration [id number] 03/21/2015 13:18:00 Document Registration [id number] 06/16/2014 15:09:00 Document Registration [id number] 06/08/2014 14:38:00 Document Registration [id number] 07/18/2012 21:55:00 Document Registration
== END 2016-11-26 15:50 | disposition home or self-care (01) ==
LOC: SDC 10:21
PROVIDERS: ATTEND Surgery
DX: K81.1 Chronic cholecystitis (principal); Z33.1 Pregnant state, incidental
CPT/HCPCS: 36415; 81000; 82962; 84702; 84703; 87077; 87088; 87186; 88304; 94664

== ENCOUNTER → 2016-12-11 | Outpatient (CLI) | payer OTHER ==
[~2016-12-11] MED LIST changes: +CEPH-507 PO; +HYDR-3812 PO
--- NOTE | 2016-12-11 14:54 | Diagnostic Imaging Report ---
PROCEDURE: US OB SINGLE FETUS <14 WKS. TECHNIQUE: Multiple real-time grayscale images were obtained over the gravid uterus in various projections. INDICATION: Positive test. FINDINGS: Real-time imaging with transvaginal probe shows some debris in the uterine cavity though no evidence of a normal-appearing gestational sac or pole. Color Doppler imaging shows no hypervascularity. M-mode shows no cardiac activity. IMPRESSION: Fluid and debris within the uterine cavity with no evidence of a normal-appearing gestational sac. Dictated by: Dictated on workstation # [id number]
== END ==
LOC: RAD 13:45
PROVIDERS: ATTEND Nurse Practitioner Family
DX: Z32.01 Encounter for pregnancy test, result positive (principal)
CPT/HCPCS: 76801

== ENCOUNTER → 2018-11-23 | Outpatient (CLI) | payer OTHER ==
[~2018-11-23] MED LIST changes: +ACHD5005 PO; -HYDR-3812 PO
--- NOTE | 2018-11-23 13:10 | Diagnostic Imaging Report ---
INDICATION: Pain in the lateral portions of both breasts. TECHNIQUE: 2D and 3D bilateral diagnostic mammography was performed with CAD. This includes bilateral CC, MLO, and ML views. FINDINGS: Both breasts are heterogeneously dense, limiting the sensitivity of mammography. No discrete mass is identified. No malignant appearing microcalcifications are seen. Occasional benign calcifications are noted. The axillae are unremarkable. IMPRESSION: No mammographic features suspicious for malignancy are identified. Even so, sonographic interrogation of the areas of pain in the lateral portions of both breasts is recommended and will be performed today. ACR BI-RADS Category 0: Incomplete. (Needs additional imaging evaluation). Result letter will be mailed to the patient. Note: At least 10% of breast cancer is not imaged by mammography. Dictated by: Dictated on workstation # [id number]
--- NOTE | 2018-11-23 13:13 | Diagnostic Imaging Report ---
INDICATION: Pain in the lateral portions of both breasts. COMPARISON: Correlation is made with the diagnostic mammogram from earlier this same day. FINDINGS: Sonographic interrogation of the areas of pain in the outer portions of both breasts was performed. No sonographic abnormality is seen. No solid or cystic mass is detected. IMPRESSION: No sonographic abnormality is detected. ACR BI-RADS Category 1: Negative. Dictated by: Dictated on workstation # [id number]
== END ==
LOC: RAD 08:07
PROVIDERS: ATTEND Nurse Practitioner Primary Care
DX: N64.4 Mastodynia (principal)
CPT/HCPCS: 76642; 77066

== ENCOUNTER 2022-08-18 02:48 | Emergency (ER) | payer SELFPAY ==
[~2022-08-18] VITALS: Ht 165.1 cm; Wt 73.0 kg
[~2022-08-18 02:48] MED LIST changes: -METF-760 PO; +METF-845 PO; +OMEP20TA56 PO; -OMEP20TA7 PO
--- NOTE | 2022-08-18 03:59 | ED General ---
General Chief Complaint: General Problems/Pain Stated Complaint: VOMITING,DIZZY Nursing Triage Note: TO ED VIA POV AND REQUESTED W/C ON ARRIVAL. 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 Exam Limitations: Language Barrier (Patient is bermudian speaking, accompanied by her son who translates) ([facility]) Source of Information: Patient, Family (ALEXANDRE ECHAVARRIA MD) History of Present Illness Date Seen by Provider: Aug 18, 2022 Time Seen by Provider: 03:30 Initial Comments 46yo F with pmhx of diabetes and HLD who presents with chief complaint of vomiting and dizziness. Patient is not fully aware of her current medication list, she is accompanied by her son. Pt reports head ache, light headedness, and vertigo that started on [id number] occuring most of the day. Symptoms continued overnight and progressed to nausea and vomiting which occured approximately 0220 on [id number] minutes before presenting to the ER. Also endorses feeling of disequilibrium and foggy mentation. Denies any recent sick contacts or previous occurrence of these symptoms. Denies diarrhea, hypertension. Timing/Duration: 1-2 Days Severity: Severe Modifying Factors: improves with Movement, improves with Other (Symptoms worsen when standing and with eyes open.) Associated Systoms: Headaches, Malaise, Nausea/Vomiting ([facility]) Allergies and Home Medications Allergies Coded Allergies: No Known Drug Allergies (Verified , 10/06/16) Patient Home Medication List Home Medication List Reviewed: Yes ([facility]) Cephalexin (Keflex) 500 Mg Capsule, 500 MG PO QID Prescribed by: KARUNA MERCADO on 11/26/16 1401 Diazepam (Valium) 5 Mg Tablet, 5 MG PO Q6H Prescribed by: COLT LOPEZ MD on 08/18/22 0653 Hydrocodone Bit/Acetaminophen (Lortab 5 Mg Tablet) 1 Each Tablet, 1 TAB PO Q4H PRN Prescribed by: KARUNA MERCADO on 11/26/16 1205 Linagliptin (Tradjenta) 5 Mg Tablet, 5 MG PO DAILY, (Reported) Entered as Reported by: RAVI CHENG on 11/19/16 1433 Metformin HCl (Metformin HCl ER) 500 Mg [id number], 1,000 MG PO HS, (Reported) Entered as Reported by: RAVI CHENG on 11/19/16 1433 Ondansetron (Ondansetron Odt) 8 Mg Tab.rapdis, 8 MG SL Q6H PRN for NAUSEA/VOM ITING Prescribed by: COLT LOPEZ MD on 08/18/22 0653 Pantoprazole Sodium (Protonix) 40 Mg Tablet.dr, 40 MG PO DAILY Prescribed by: FRANCHESKA OLSEN on 10/06/16 09 Polyethylene Glycol 3350 (Miralax) 119 Gm Powder, 17 GM PO BID Prescribed by: ALEXANDRE PERAZA on 09/03/152105 Sucralfate (Carafate) 1 Gm Tablet, 1 GM PO QID Prescribed by: FRANCHESKA OLSEN on 10/06/16 09 [Blood Pressure Med] , (Reported) Entered as Reported by: THA PINA on 06/16/14 1522 Review of Systems Review of Systems Constitutional: dizziness, malaise, weakness EENTM: no symptoms reported Respiratory: no symptoms reported Cardiovascular: no symptoms reported Gastrointestinal: No abdominal pain, No constipation, No heartburn; nausea, vomiting Genitourinary: no symptoms reported Musculoskeletal: no symptoms reported Skin: no symptoms reported Psychiatric/Neurological: No Symptoms Reported, Headache ([facility]) All Other Systems Reviewed Negative Unless Noted: Yes ([facility]) Past Nfhtzls-Sgfkki-Ysoegx Hx Patient Social History Tobacco Use?: No Substance use?: No Alcohol Use?: No ([facility]) Immunizations Up To Date Influenza Vaccine Up-to-Date: No; Not Current ([facility]) Seasonal Allergies Seasonal Allergies: No ([facility]) Past Medical History Currently Using CPAP: No Reproductive Disorders: No Female Reproductive Disorders: Denies Sexually Transmitted Disease: No HIV/AIDS: No Diabetes, Non-Insulin dep Loss of Vision: Denies Adverse Reaction/Blood Tranf: No ([facility]) Family Medical History No Pertinent Family Hx ([facility]) Physical Exam Vital Signs Vital Signs - First Documented 08/18/22 03:05 Temp 36.0 Pulse 78 Resp 16 B/P (MAP) 185/99 (127) Pulse Ox 99 O2 Delivery Room Air (ALEXANDRE ECHAVARRIA MD) Vital Signs Capillary Refill : Less Than 3 Seconds ([facility]) Height, Weight, BMI Height: 5'2.00" Weight: 161lbs. 2.0oz. 73.001137bk; 26.00 BMI Method: General Appearance: Other (Patient is acutely ill appearing and vomiting while present in the room. Parte of exam are limited by patient's severe mailaise and inability to participate.) Eyes: Bilateral Eye PERRL, Bilateral Eye Abnormal EOM (Leftward beating nystagmus.) HEENT: TMs Normal, Normal ENT Inspection, Pharynx Normal, Other (Maxim-Hallpike Manuver attempted but unable to be completed due to patient's severe weakness and difficulty opening eyelids) Neck: Full Range of Motion, Normal Inspection, Non Tender, Supple Respiratory: Chest Non Tender, Lungs Clear, Normal Breath Sounds, No Accessory Muscle Use, No Respiratory Distress Cardiovascular: Regular Rate, Rhythm, No Edema, No Gallop, No JVD, No Murmur, Normal Peripheral Pulses Gastrointestinal: Normal Bowel Sounds, No Organomegaly, No Pulsatile Mass, Non Tender, Soft Neurologic/Psychiatric: Alert, Oriented x3, No Motor/Sensory Deficits, Other Skin: Warm/Dry, Pallor Lymphatic: No Adenopathy (Cervical and Supraclavicular) ([facility]) Progress/Results/Core Measures Suspected Sepsis SIRS Temperature: Pulse: 78 Respiratory Rate: 16 Blood Pressure 185 /99 Mean: 127 ([facility]) Results/Orders Lab Results Laboratory Tests Test 08/18/22 04:20 08/18/22 04:22 Range/Units White Blood Count 12.9 H 4.3-11.0 10^3/uL Red Blood Count 4.31 3.80-5.11 10^6/uL Hemoglobin 13.6 11.5-16.0 g/dL Hematocrit 38 35-52 % Mean Corpuscular Volume 89 80-99 fL Mean Corpuscular Hemoglobin 32 25-34 pg Mean Corpuscular Hemoglobin Concent 36 32-36 g/dL Red Cell Distribution Width 11.6 10.0-14.5 % Platelet Count 190 130-400 10^3/uL Mean Platelet Volume 11.2 9.0-12.2 fL Immature Granulocyte % (Auto) 1 % Neutrophils (%) (Auto) 77 H 42-75 % Lymphocytes (%) (Auto) 15 12-44 % Monocytes (%) (Auto) 6 0-12 % Eosinophils (%) (Auto) 1 0-10 % Basophils (%) (Auto) 1 0-10 % Neutrophils # (Auto) 9.9 H 1.8-7.8 10^3/uL Lymphocytes # (Auto) 2.0 1.0-4.0 10^3/uL Monocytes # (Auto) 0.8 0.0-1.0 10^3/uL Eosinophils # (Auto) 0.1 0.0-0.3 10^3/uL Basophils # (Auto) 0.1 0.0-0.1 10^3/uL Immature Granulocyte # (Auto) 0.1 0.0-0.1 10^3/uL Sodium Level 137 135-145 MMOL/L Potassium Level 3.9 3.6-5.0 MMOL/L Chloride Level 106 98-107 MMOL/L Carbon Dioxide Level 16 L 21-32 MMOL/L Anion Gap 15 H 5-14 MMOL/L Blood Urea Nitrogen 21 H 7-18 MG/DL Creatinine 1.05 0.60-1.30 MG/DL Estimat Glomerular Filtration Rate 67 BUN/Creatinine Ratio 20 Glucose Level 207 H 70-105 MG/DL Calcium Level 9.1 8.5-10.1 MG/DL Corrected Calcium 8.9 8.5-10.1 MG/DL Magnesium Level 1.9 1.6-2.4 MG/DL Total Bilirubin 0.3 0.1-1.0 MG/DL Aspartate Amino Transf (AST/SGOT) 20 5-34 U/L Alanine Aminotransferase (ALT/SGPT) 23 0-55 U/L Alkaline Phosphatase 90 40-136 U/L Total Protein 8.1 6.4-8.2 GM/DL Albumin 4.3 3.2-4.5 GM/DL Serum Test, Qualitative NEGATIVE NEGATIVE Glucometer 194 H 70-110 MG/DL (ALEXANDRE ECHAVARRIA MD) My Orders Orders - ALEXANDRE ECHAVARRIA MD Cbc With Automated Diff (08/18/22 03:46) Comprehensive Metabolic Panel (08/18/22 03:46) Hcg,Qualitative Serum (08/18/22 03:46) Magnesium (08/18/22 03:46) Ua Culture If Indicated (08/18/22 03:46) Ed Iv/Invasive Line Start (08/18/22 03:46) Lactated Ringers (Lr 1000 Ml Iv Solution (08/18/22 04:00) Promethazine Injection (Phenergan Injec (08/18/22 04:00) Ondansetron Injection (Zofran Injectio (08/18/22 04:15) Accucheck Stat ONCE (08/18/22 04:11) Diphenhydramine Injection (Benadryl Inje (08/18/22 06:00) (ALEXANDRE ECHAVARRIA MD) Medications Given in ED Current Medications Medications Dose Ordered Sig/Yfn Route Start Time Stop Time Status Last Admin Dose Admin Diphenhydramine HCl 25 mg ONCE ONCE IVP 08/18/22 06:00 08/18/22 06:01 DC 08/18/22 05:53 25 MG Lactated Ringer's 1,000 ml @ 0 mls/hr Q0M ONCE IV 08/18/22 04:00 08/18/22 04:01 DC 08/18/22 04:23 0 MLS/HR Ondansetron HCl 8 mg ONCE ONCE IVP 08/18/22 04:15 08/18/22 04:16 DC 08/18/22 04:22 8 MG Promethazine HCl 25 mg ONCE ONCE IVP 08/18/22 04:00 08/18/22 04:01 DC 08/18/22 04:22 25 MG (ALEXANDRE ECHAVARRIA MD) Vital Signs/I&O 08/18/22 08/18/22 03:05 06:55 Temp 36.0 36.0 Pulse 78 74 Resp 16 16 B/P (MAP) 185/99 (127) 151/88 Pulse Ox 99 100 O2 Delivery Room Air Room Air (ALEXANDRE ECHAVARRIA MD) Vital Signs/I&O Capillary Refill : Less Than 3 Seconds ([facility]) Blood Pressure Mean: 127 Progress Note : Time: 03:37 Progress Note Pt seen by Dr. Echavarria ([facility]) Progress Note : Time: 05:50 Progress Note StartPatient was interviewed and examined by me along with medical students. 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 Dizziness started yesterday and was present throughout most of the day. Vomiting just started this morning. She was treated with Phenergan, Zofran, and a liter of LR for her nausea and vertigo. Upon reassessment she appeared agitated and complained of persistent dizziness. Benadryl is being administered now presuming the Phenergan has caused the agitation. Once agitation has calmed, we will reassess her. No focal neurologic deficits were identified on initial exam, although patient's effort during the exam was minimal and she appeared globally weak. There was notable nystagmus, left greater than right, on the initial exam. Care of this patient is being transitioned to Dr. Lopez at this time. (ALEXANDRE ECHAVARRIA MD) ECG Initial ECG Impression Date: Aug 18, 2022 ([facility]) Diagnostic Imaging Diagonstic Imaging: CT Plain Films/CT/US/NM/MRI: head Comments NAME: REEMA VILLANUEVA [facility] REC#: [id number] PT STATUS: REG ER : 1975 PHYSICIAN: COLT LOPEZ DO ADMIT DATE: 08/18/22/ER Signed Date of Exam:08/18/22 CT HEAD WO PROCEDURE: CT head without contrast. TECHNIQUE: Multiple contiguous axial images were obtained through the brain without the use of intravenous contrast. Auto Exposure Controls were utilized during the CT exam to meet ALARA standards for radiation dose reduction. INDICATION: Dizziness. COMPARISON: None available. FINDINGS: No hyperdense hemorrhage or space-occupying mass. No hydrocephalus or midline shift. The basilar cisterns are normal. Constantino-white matter differentiation is well preserved. The mastoid air cells are clear. Paranasal sinuses are normal. No focal osseous abnormality of the calvarium. IMPRESSION: 1. No acute intracranial process. Dictated by: Dictated on workstation # [id number] Dict: 08/18/22631 Trans: 08/18/22632 [facility] [id number] Interpreted by: MADY WANG MD Electronically signed by: MADY WANG MD 08/18/22632 (ALEXANDRE ECHAVARRIA MD) Departure Communication (Admissions) On reexamination the patient is resting comfortably in the bed at this time. She states she is feeling somewhat better but is still slightly dizzy. I attemp eliu an Mono maneuver at bedside and stated she did get some relief with this. She is still feeling slightly dizzy. She has fatigable nystagmus to the left side on my exam. No focal neurologic deficits. Her CT scan is negative labs are reassuring as is her exam. Hints exam is negative. I believe this is related to peripheral vertigo, likely related to a viral type illness. She will be treated conservatively with Valium and Zofran. outpatient pharmacy manager was used to relay instructions and answered all questions. Discharge instructions are provided in Slovenian and Nauruan. The patient and her are comfortable and agreeable with discharge at this time. (COLT LOPEZ DO) Impression Primary Impression: Vertigo Additional Impression: Vomiting Qualified Codes: R11.2 - Nausea with vomiting, unspecified Disposition: 01 HOME, SELF-CARE Condition: Stable Departure-Patient Inst. Referrals: [facility] [place] (PCP/Family) Primary Care Physician Patient Instructions: Nausea and Vomiting, Adult ED, Vertigo (a Type of Dizziness) Add. Discharge Instructions: Please take the medication Valium as needed for dizziness. This may make you drowsy so do not drive or make important decisions while you are taking this. Use the Zofran for nausea as needed. I believe your dizziness is related to vertigo which is likely related to a viral illness. You may have fevers, body aches and feel generally unwell. You may have continued nausea and vomiting despite Acacian use however it is important that you continue to try to drink as much fluid as possible to avoid dehydration during this time. There is no indication currently that this is from a stroke however if you continue to have symptoms over the next 48 hours you should follow-up with your primary doctor. Of course return to the emergency department should your symptoms change in any way concerning to you, specifically if you develop any vision changes, di fficulty speaking or weakness in your arms or legs. [place] el medicamento Valium segn sea necesario para los mareos. Mcgraw puede provocarle somnolencia, as que no conduzca ni tome decisiones importantes mientras lo est tomando. Use el Zofran para las nuseas segn sea necesario. Creo que amaya mareo est relacionado con el vrtigo, que probablemente est relacionado con susannah enfermedad viral. Puede tener fiebre, rigoberto en el cuerpo y sentirse mal en general. Es posible que tenga nuseas y vmitos continuos a pesar del uso de Acacian; sin embargo, es importante que contine tratando de beber la mayor cantidad de lquido posible para evitar la deshidratacin alanna kristie tiempo. Actualmente no hay indicios de que esto se deba a un accidente cerebrovascular; sin embargo, si contina teniendo sntomas alanna las prximas 48 horas, debe realizar un seguimiento con amaya mdico de cabsonra. Por supuesto, regrese al departamento de emergencias si mikel sntomas cambian de alguna manera que le concierna, especficamente si desarrolla cambios en la visin, dificultad para hablar o debilidad en los brazos o las piernas. All discharge instructions reviewed with patient and/or family. Voiced understanding. Scripts Ondansetron (Ondansetron Odt) 8 Mg Tab.rapdis 8 MG SL Q6H PRN for NAUSEA/VOMITING for 4 Days, #16 TAB Prov: COLT LOPEZ DO 08/18/22 Diazepam (Valium) 5 Mg Tablet 5 MG PO Q6H for Vertigo for 4 Days, #16 TAB Prov: COLT LOPEZ DO 08/18/22 Medical Student Attestation and Attending Note: I have personally interviewed and examined this patient along with [facility] MS4. I have reviewed student documentation including history, physical, and assessments. I agree with the documentation except where otherwise noted. Exam: General: Alert, oriented, somnolent, no acute distress, well developed, poor effort following instructions on exam HEENT: Normocephalic and atraumatic, nystagmus with horizontal gaze, more prominent with leftward gaze Heart: Regular rate and rhythm without murmur Lungs: Clear to auscultation bilaterally with normal effort Abdomen: Soft, nontender, nondistended, normal bowel sounds Neuropsych: Somnolent, oriented, no focal deficits, global weakness, poor effort with exam. Skin: Warm and dry without rashes (ALEXANDRE ECHAVARRIA MD) Copy Copies To 1: [facility] Aug 18, 2022 03:59 ALEXANDRE ECHAVARRIA MD Aug 18, 2022 05:55 COLT LOPEZ DO Aug 18, 2022 06:37
[2022-08-18] MEDS ORDERED: PROMETHAZINE INJ 25 MG/ML (PHENERGAN) AMP IVP ONE (04:00)
[2022-08-18] MEDS ORDERED: LACTATED RINGERS 1,000 ML IV ONE (04:00)
[2022-08-18] MEDS ORDERED: ONDANSETRON 4 MG/2 ML (SDV) Z0FRAN IVP ONE (04:15)
[2022-08-18 04:31] LABS: BASOPHILS # (AUTO) 0.1 10^3/uL (0.0-0.1); BASOPHILS % (AUTO) 1 % (0-10); EOSINOPHILS # (AUTO) 0.1 10^3/uL (0.0-0.3); EOSINOPHILS % (AUTO) 1 % (0-10); HEMATOCRIT 38 % (35-52); HEMOGLOBIN 13.6 g/dL (11.5-16.0); LYMPHOCYTES % (AUTO) 15 % (12-44); MEAN CORPUSCULAR HEMOGLOBIN 32 pg (25-34); MEAN CORPUSCULAR HGB CONC 36 g/dL (32-36); MEAN CORPUSCULAR VOLUME 89 fL (80-99); MEAN PLATELET VOLUME 11.2 fL (9.0-12.2); MONOCYTES # (AUTO) 0.8 10^3/uL (0.0-1.0); MONOCYTES % (AUTO) 6 % (0-12); NEUTROPHILS # (AUTO) 9.9 10^3/uL (1.8-7.8); NEUTROPHILS % (AUTO) 77 % (42-75); PLATELET COUNT 190 10^3/uL (130-400); WHITE BLOOD COUNT 12.9 10^3/uL (4.3-11.0)
[2022-08-18 04:51] LABS: ALBUMIN 4.3 GM/DL (3.2-4.5)
[2022-08-18 04:52] LABS: POTASSIUM 3.9 MMOL/L (3.6-5.0)
[2022-08-18 04:53] LABS: CALCIUM 9.1 MG/DL (8.5-10.1)
[2022-08-18 04:54] LABS: TOTAL PROTEIN 8.1 GM/DL (6.4-8.2)
[2022-08-18 04:56] LABS: BILIRUBIN,TOTAL 0.3 MG/DL (0.1-1.0)
[2022-08-18 04:58] LABS: CREATININE SERUM 1.05 MG/DL (0.60-1.30)
[2022-08-18 05:00] LABS: MAGNESIUM 1.9 MG/DL (1.6-2.4)
[2022-08-18] MEDS ORDERED: diphenhydrAMINE 50 MG/ML INJ (BENADRYL) IVP ONE (06:00)
--- NOTE | 2022-08-18 06:34 | Diagnostic Imaging Report ---
PROCEDURE: CT head without contrast. TECHNIQUE: Multiple contiguous axial images were obtained through the brain without the use of intravenous contrast. Auto Exposure Controls were utilized during the CT exam to meet ALARA standards for radiation dose reduction. INDICATION: Dizziness. COMPARISON: None available. FINDINGS: No hyperdense hemorrhage or space-occupying mass. No hydrocephalus or midline shift. The basilar cisterns are normal. Constantino-white matter differentiation is well preserved. The mastoid air cells are clear. Paranasal sinuses are normal. No focal osseous abnormality of the calvarium. IMPRESSION: 1. No acute intracranial process. Dictated by: Dictated on workstation # [id number]
[2022-08-18] MEDS ORDERED: DIAZ5TAB PO (06:53)
[2022-08-18] MEDS ORDERED: ONDA8TAB13 SL (06:53)
[2022-08-18 06:55] VITALS: BP 151/88
== END 2022-08-18 07:05 | disposition home or self-care (01) ==
LOC: EDUNIT# 02:48 → ER 02:52
DX: R11.2 Nausea with vomiting, unspecified (principal); R42 Dizziness and giddiness
CPT/HCPCS: 36415; 70450; 80053; 82947; 83735; 84703; 85025